=== PATIENT | male | born 1985 | race Caucasian/White ===

== ENCOUNTER 2018-06-18 19:59 | Emergency (ER) | payer SELFPAY ==
[~2018-06-18] VITALS: Ht 172.7 cm; Wt 81.6 kg
[2018-06-18 20:44] VITALS: Ht 172.7 cm; Wt 81.6 kg
[2018-06-18 21:59] VITALS: BP 152/90
== END 2018-06-18 22:00 | disposition left against medical advice (07) ==
LOC: EDAGE 19:59 → ED 19:59
DX: R41.82 Altered mental status, unspecified (principal)
CPT/HCPCS: G0480